=== PATIENT | male | born 2000 | race Caucasian/White ===

== ENCOUNTER 2024-09-24 19:20 | Emergency (ER) | payer OTHER, SELFPAY ==
[2024-09-24] VITALS (16 sets, daily range): BP systolic 114–157; BP diastolic 77–92; PULSE 75–92; RESP 12–24; TEMP 36.6; O2SAT 95–100; BMI 32.8
--- NOTE | 2024-09-24 20:21 | CRLHL7_ITS ---
For Patients: As a result of the Century Cures Act, medical imaging exams and procedure reports are released immediately into your electronic medical record. You may view this report before your referring provider. If you have questions, please contact your health care provider. INDICATION: Chest pain. TECHNIQUE: Chest 2 views. COMPARISON: None. FINDINGS: Cardiovascular and mediastinum: Heart size is normal. Unremarkable mediastinum. Lungs and pleural spaces: Lungs are clear. No sign of infiltrate or mass. No sign of pleural effusion. No pneumothorax. Bones and soft tissues: No significant findings. IMPRESSION: No acute or significant findings. Dictated by Luna Flannery MD @ 09/24/2024 8:47:45 PM (Electronically Signed)
--- NOTE | 2024-09-24 20:22 | ED_ITS ---
HPI - Chest Pain General Date Seen: 09/24/24 Chief Complaint: Chest Pain Stated Complaint: Chest pain, tightness in chest Time Seen by Provider: 09/24/24 19:44 Source: patient Mode of arrival: ambulatory Limitations: no limitations History of Present Illness HPI narrative: Patient is a 24-year-old male presenting to the emergency department for chest pain. He states around 12:30 he started to have chest pain. Describes as a sharp chest pain that has been intermittent with dull ache in between. Denies ever having symptoms like this before. Has not noticed any worsening pain with deep breaths. Does not notice anything making the pain better or worse. No family history of early cardiac . He does have history of asthma but no longer needs medications for it. Denies fevers, chills, abdominal pain, headache, lightheadedness, dizziness, weakness, numbness. Does states he had a mild cough over the weekend but not anymore. Denies history of blood clots, hemoptysis, lower extremity swelling, hormone use. No other concerns noted. Does state he vapes tobacco. Related Data Home Medications ?Medication ?Instructions ?Recorded ?Confirmed No Known Home Medications 09/24/24 09/24/24 Allergies Allergy/AdvReac Type Severity Reaction Status Date / Time No Known Drug Allergies Allergy Verified 09/24/24 19:37 Review of Systems Status of ROS Reports: 10 or more systems reviewed and unremarkable except as noted in History and below [facility] Social History service: No Exam Narrative Exam Narrative: Const: Well-nourished, Well-developed, in mild distress Eyes: PERRL, no conjunctival injection, and symmetrical lids HENT: Atraumatic external nose and ears. Moist mucous membranes. Neck: Symmetric, trachea midline, No thyromegaly. CVS: RRR, No murmurs or gallops. Peripheral pulses 2+ and equal in all extremities RESP: Unlabored respiratory effort. Clear to auscultation bilaterally. GI: Nontender/Nondistended, No rebound or guarding. MSK:Extremities w/o deformity, Normal Active ROM, mild tenderness to palpation of his sternum that is not the same as his presenting pain Skin: Warm, Dry. No rashes or lesions. Neuro: Normal Muscle tone, No focal neurological deficits. Psych: Awake, Alert, & Oriented x3. Appropriate mood and affect. Const Vital Signs, click to edit/add: Vital Signs - 24 hr 09/24/24 19:30 09/24/24 19:54 09/24/24 19:55 Temperature 97.8 F Pulse Rate 82 84 Pulse Rate [Pulse Oximeter] 92 Respiratory Rate 16 19 Blood Pressure 121/88 Blood Pressure [Right Upper Arm] 157/92 H Pulse Oximetry 100 95 95 Oxygen Delivery Method Room Air 09/24/24 20:00 09/24/24 20:01 09/24/24 20:02 Temperature Pulse Rate 81 87 83 Pulse Rate [Pulse Oximeter] Respiratory Rate 20 17 24 Blood Pressure 133/77 Blood Pressure [Right Upper Arm] Pulse Oximetry 95 96 95 Oxygen Delivery Method 09/24/24 20:15 09/24/24 20:30 09/24/24 20:35 Temperature Pulse Rate 82 85 Pulse Rate [Pulse Oximeter] Respiratory Rate 17 18 17 Blood Pressure Blood Pressure [Right Upper Arm] Pulse Oximetry 97 97 Oxygen Delivery Method 09/24/24 20:36 09/24/24 20:45 09/24/24 21:00 Temperature Pulse Rate 75 81 76 Pulse Rate [Pulse Oximeter] Respiratory Rate 19 22 Blood Pressure Blood Pressure [Right Upper Arm] Pulse Oximetry 96 95 96 Oxygen Delivery Method 09/24/24 21:02 09/24/24 21:15 Temperature Pulse Rate 78 78 Pulse Rate [Pulse Oximeter] Respiratory Rate 12 12 Blood Pressure 133/81 Blood Pressure [Right Upper Arm] Pulse Oximetry 96 96 Oxygen Delivery Method Course Vital Signs Vital signs: Initial Vital Signs Temperature 97.8 F 09/24/24 19:30 Temperature Source Temporal Artery Scan 09/24/24 19:30 Pulse Rate 92 09/24/24 19:30 Respiratory Rate 16 09/24/24 19:30 Blood Pressure 157/92 H 09/24/24 19:30 Blood Pressure Mean 113 H 09/24/24 19:30 Blood Pressure Position Supine 09/24/24 19:30 Pulse Oximetry 100 09/24/24 19:30 Oxygen Delivery Method Room Air 09/24/24 19:30 Vital Signs Temperature 97.8 F 09/24/24 19:30 Pulse Rate 92 09/24/24 19:30 Respiratory Rate 16 09/24/24 19:30 Blood Pressure 157/92 H 09/24/24 19:30 Pulse Oximetry 100 09/24/24 19:30 Oxygen Delivery Method Room Air 09/24/24 19:30 Temperature 97.8 F 09/24/24 19:30 Pulse Rate 78 09/24/24 21:15 Respiratory Rate 12 09/24/24 21:15 Blood Pressure 133/81 09/24/24 21:02 Pulse Oximetry 96 09/24/24 21:15 Oxygen Delivery Method Room Air 09/24/24 19:30 MDM - Chest Pain MDM Narrative Medical decision making narrative: Patient is a 24-year-old male presenting for chest pain. The differential diagnosis of chest pain is broad and includes common etiologies such as musculoskeletal strain, GERD, pneumonia, etc. More serious etiologies considered include PE, coronary artery disease, pneumothorax, aortic dissection, aortic aneurysm. Will do chest x-ray to look for signs pneumonia or pneumothorax. With his other stable vital signs aortic dissection and aortic aneurysm seem unlikely. Will do an EKG and troponin to look for signs of myocarditis or ACS. He is PERC negative and PE can not be ruled out. Will also order a CBC and BMP. Lab work returned showing no concerning abnormalities. Concerning how long his symptoms have been going on for I do not believe repeat troponin is necessary. EKG reviewed by myself shows no concerning findings. Chest x-ray reviewed by myself and the radiologist shows no acute concerning abnormalities. At this point seems like these pains for pleurisy as his recent cough is likely from some type of virus. Will discharge him home. Informed to return for any new or worsening symptoms. He is agreeable to this plan. Lab Data Labs: Lab Results 09/24/24 Range/Units 20:30 WBC 8.48 (4.50-11.00) K/uL RBC 5.62 (4.30-5.90) m/uL Hgb 15.8 (13.5-17.5) gm/dL Hct 45.8 (37.0-53.0) % MCV 82 (80-100) fL MCH 28 (26-34) pg MCHC 35 (32-36) gm/dL RDW Coeff of Samantha 13.0 (11.5-15.5) % Plt Count 270 (140-440) K/uL Neut % (Auto) 64.5 (42.0-72.0) % Lymph % (Auto) 27.2 (20-44) % [place] % (Auto) 5.9 (0.0-11.0) % Eos % (Auto) 1.9 (0.0-7.0) % Baso % (Auto) 0.4 (0.0-3.0) % Neut # (Auto) 5.47 (1.7-7.0) K/uL Lymph # (Auto) 2.31 (0.90-2.90) K/uL [place] # (Auto) 0.50 (0.00-0.90) K/UL Eos # (Auto) 0.16 (0.00-0.50) K/uL Baso # (Auto) 0.03 (0.00-0.30) K/uL Abs Immat Gran (auto) 0.01 (0.00-0.30) K/uL Imm/Tot Granulo (auto) 0.1 % Sodium 140 (135-149) mmol/L Potassium 3.7 (3.6-5.1) mmol/L Chloride 101 (96-114) mmol/L Carbon Dioxide 29 (20-32) mmol/L Anion Gap 10 (7-15) mEq/L BUN 12 (5-24) mg/dL Creatinine 0.9 (0.5-1.5) mg/dL Estimated Creat Clear 132.47 Estimated GFR 121 ml/min Glucose 119 H (60-115) mg/dL Calcium 9.3 (8.4-10.6) mg/dL POC Troponin I 0.00 L (0.01-0.04) ng/ml Imaging Data Chest x-ray: Attestation: I have reviewed the pertinent imaging results. Radiologist's impression: No acute or significant findings. Dictated by Luna Flannery MD @ 09/24/2024 8:47:45 PM ECG Data Attestation: I personally reviewed and interpreted this ECG as follows: Prior ECG tracings: not available for review Interpretation: Normal sinus rhythm with a rate of 78 beats per minute, normal intervals, normal axis, no ST or T-wave abnormalities. Discharge Plan Discharge Clinical Impression: Atypical chest pain Patient Disposition: Home, Self-Care Condition: Stable Instructions: Noncardiac Chest Pain (ED) Additional Instructions: At this time I cannot say exactly what is causing your chest pain. I do not see any signs of concerning or emergent issues at this time. If symptoms do persist you can follow-up with your primary care provider. Return to emergency department for any other new or worsening symptoms. Prescriptions: No Action No Known Home Medications Follow Up/Referrals: Provider,Not a Local [Primary Care Provider] - Stand Alone Forms: xPeerient Info Instructions
[2024-09-24 20:49] LABS: Chloride* 101 mmol/L (96-114); Potassium* 3.7 mmol/L (3.6-5.1); Sodium* 140 mmol/L (135-149)
[2024-09-24 20:52] LABS: Anion Gap 10 mEq/L (7-15); Blood Urea Nitrogen* 12 mg/dL (5-24); Calcium* 9.3 mg/dL (8.4-10.6); Carbon Dioxide* 29 mmol/L (20-32); Creatinine* 0.9 mg/dL (0.5-1.5); Est. Creatinine Clearance* 132.47; Estimated Glomerular Filt Rate 121 ml/min; Glucose* 119 mg/dL (60-115)
[2024-09-24 21:11] LABS: Basophils Absolute Auto 0.03 K/uL (0.00-0.30); Basophils Percent Auto 0.4 % (0.0-3.0); Eosinophils Absolute Auto 0.16 K/uL (0.00-0.50); Eosinophils Percent Auto 1.9 % (0.0-7.0); Hematocrit 45.8 % (37.0-53.0); Hemoglobin* 15.8 gm/dL (13.5-17.5); Immature Granulocytes Abs Auto 0.01 K/uL (0.00-0.30); Immature Granulocytes Pct Auto 0.1 %; Lymphocytes Absolute Auto 2.31 K/uL (0.90-2.90); Lymphocytes Percent Auto 27.2 % (20-44); Mean Corpuscular HGB Conc 35 gm/dL (32-36); Mean Corpuscular Hemoglobin 28 pg (26-34); Mean Corpuscular Volume 82 fL (80-100); Monocytes Percent Auto 5.9 % (0.0-11.0); Neutrophils Absolute Auto 5.47 K/uL (1.7-7.0); Neutrophils Percent Auto 64.5 % (42.0-72.0); Platelet Count* 270 K/uL (140-440); Red Blood Count 5.62 m/uL (4.30-5.90); White Blood Count* 8.48 K/uL (4.50-11.00)
[2024-09-24 21:12] LABS: Slide Review Reflex No
== END 2024-09-24 21:45 | disposition home or self-care (01) ==
PROVIDERS: Emergency Provider Student in an Organized Health Care Education/Training Program
DX: R07.9 Chest pain, unspecified (principal)
CPT/HCPCS: 36415; 71046; 80048; 83690; 84484; 85025; 99284